=== PATIENT | female | born 1995 | race Caucasian/White ===

== ENCOUNTER 2023-07-19 06:44 | Emergency (ER) | payer BC ==
[~2023-07-19] VITALS: Ht 160 cm; Wt 83.9 kg
[2023-07-19 06:56] VITALS: BP_SYST 120; PULSE 131; RESP 18; TEMP 103.1; O2SAT 95
[2023-07-19 07:41] LABS: BASOPHILS % (AUTO) 0.4 % (0.0-2.0); EOSINOPHILS # (AUTO) 0.1 K/uL (0.0-0.4); EOSINOPHILS % (AUTO) 0.7 % (0.0-4.0); HEMATOCRIT 35.9 % (36-48); HEMOGLOBIN 11.8 g/dL (12.0-16.0); LYMPHOCYTES # (AUTO) 0.5 K/uL (1.0-5.5); LYMPHOCYTES % (AUTO) 6.1 % (20.5-51.5); MEAN CORPUSCULAR HEMOGLOBIN 27 pg (27-31); MEAN CORPUSCULAR HGB CONC 33 % (32-36); MEAN CORPUSCULAR VOLUME 81 fL (79.0-98.0); MONOCYTES # (AUTO) 0.8 K/uL (0.0-1.0); MONOCYTES % (AUTO) 11.1 % (1.7-9.3); NEUTROPHILS # (AUTO) 6.1 K/uL (1.8-7.7); NEUTROPHILS % (AUTO) 81.7 % (40.0-70.0); PLATELET COUNT (AUTO) 308 K/uL (130-430); RED BLOOD CELL COUNT(AUTO) 4.45 MIL/uL (4.2-6.2); RED CELL DISTRIBUTION WIDTH 15.8 % (9.0-15.0); WHITE BLOOD COUNT (AUTO) 7.5 K/uL (4.8-10.8)
[2023-07-19 07:54] LABS: BILIRUBIN,URINE NEGATIVE (NEGATIVE); BLOOD, URINE 3+ (NEGATIVE); COLOR,URINE YELLOW (YELLOW); GLUCOSE,URINE NEGATIVE (NEGATIVE); KETONES,URINE TRACE (NEGATIVE); LEUKOCYTE ESTERASE ,URINE NEGATIVE (NEGATIVE); NITRITE, URINE NEGATIVE (NEGATIVE); PROTEIN URINE 2+ (NEGATIVE); UROBILINOGEN,URINE 0.2 (0.2-1.0)
[2023-07-19 07:56] LABS: CLARITY/URINE HAZY (CLEAR)
[2023-07-19] MEDS: IBUPROFEN 600 MG TABLET PO ONE (07:56)
[2023-07-19] MEDS: NACL 0.9% 1,000 ML IV ONE (07:56)
[2023-07-19 07:59] LABS: BACTERIA,URINE FEW /HPF (None Seen); MUCUS,URINE 1+ /LPF (None Seen); RBC,URINE 20-50 /HPF (0-3); WBC,URINE 0-3 /HPF (0-3)
[2023-07-19 08:01] LABS: CALCIUM 8.5 mg/dL (8.4-11.0); CREATININE 1.23 mg/dL (0.55-1.30); POTASSIUM 3.7 mmol/L (3.5-5.1)
[2023-07-19 08:06] LABS: ALBUMIN 3.5 g/dL (3.4-4.8); BILIRUBIN,DIRECT 0.1 mg/dL (0.0-0.3); TOTAL BILIRUBIN 0.1 mg/dL (0.0-1.0); TOTAL PROTEIN, SERUM 7.4 g/dL (6.4-8.3)
[2023-07-19] MEDS: ACETAMINOPHEN 500 MG TABLET PO ONE (08:11)
[2023-07-19] MEDS ORDERED: IBUP-1970 PO (08:34)
[2023-07-19] MEDS ORDERED: BENZ100C92 PO (08:34)
[2023-07-19 08:45] VITALS: BP_SYST 124; PULSE 121; RESP 18; TEMP 101.3; O2SAT 98
[2023-07-19 08:50] LABS: COVID19 ANTIGEN SOFIA FIA NEGATIVE (NEGATIVE)
[2023-07-19 08:53] LABS: INFLUENZA TYPE B NEGATIVE (NEGATIVE)
[2023-07-19 08:56] LABS: INFLUENZA TYPE A Positive (NEGATIVE)
== END 2023-07-19 08:44 | disposition home or self-care (01) ==
LOC: SED 06:44
DX: J10.1 Influenza due to other identified influenza virus with other respiratory manifestations (principal); B34.9 Viral infection, unspecified; R05.9 Cough, unspecified; R50.9 Fever, unspecified; M79.10 Myalgia, unspecified site; Z79.899 Other long term (current) drug therapy; Z20.822 Contact with and (suspected) exposure to COVID-19
CPT/HCPCS: 99284; 96360; 71045; 87426; 80076; 80048; 81000; 81001; 85025; 87040; 36415; 81025; 83605; 87804 ×2; 81015; J7030